=== PATIENT | male | born 1970 ===

== ENCOUNTER 2025-03-28 19:22 | Emergency (ER) | payer MEDICAID, OTHER ==
[2025-03-28 20:17] LABS: BASOPHILS PERCENT AUTO 0.1 % (0.0-1.0); EOSINOPHILS PERCENT AUTO 0.3 % (1.0-3.0); LYMPHOCYTES PERCENT AUTO 20.4 % (20.5-50.1); MONOCYTES PERCENT AUTO 6.3 % (2-8); NEUTROPHILS PERCENT AUTO 72.9 % (42.2-75.2); PLATELET COUNT,PLT 208 10^3/uL (150-450); RED BLOOD CELL COUNT 5.11 10^6/uL (4.6-6.2); WHITE BLOOD CELL COUNT,WBC 7.4 10^3/uL (5.0-10.0)
[2025-03-28 20:35] LABS: A/G RATIO 1.0; ALANINE AMINOTRANSFERASE,ALT 28.0 U/L (16-63); ASPARTATE AMNIOTRANSFERASE,AST 22.0 U/L (15-37); BILIRUBIN TOTAL 0.9 mg/dL (0.2-1.0); BLOOD UREA NITROGEN,BUN 12.0 mg/dL (7-18); CARBON DIOXIDE,CO2 31.0 mmol/L (21-32); CHLORIDE,CL 104.0 mmol/L (98-107); CREATININE 0.83 mg/dL (0.70-1.30); EST CRCL DRUG DOSING (CG) 118.78 mL/min; GLUCOSE RANDOM 127.0 mg/dL (70-99); POTASSIUM,K 4.0 mmol/L (3.5-5.1); PROTEIN TOTAL,TP 7.4 g/dL (6.4-8.2); SODIUM,NA 141.0 mmol/L (136-145)
[2025-03-28 20:38] LABS: ESTIMATED GFR 103.0 mL/min (>=60)
[2025-03-28] MEDS: Iopamidol 612 MG/ML 100 ML Bottle IVPUSH ONE (20:53)
[2025-03-28] MEDS: Ketorolac 30 MG/ML SDV IVPUSH ONE (21:03)
[2025-03-28] MEDS ORDERED: Take Home: Acetaminophen/HYDROcodone 325-5 MG, 5 Tab Pack PO ONE (21:30)
== END 2025-03-28 21:48 ==
LOC: DL.ED 19:22
DX: S46.911A Strain of unspecified muscle, fascia and tendon at shoulder and upper arm level, right arm, initial encounter (principal); S00.83XA Contusion of other part of head, initial encounter; S00.512A Abrasion of oral cavity, initial encounter; Y04.8XXA Assault by other bodily force, initial encounter
CPT/HCPCS: 36415; 70450; 70486; 70491; 71046; 72125; 73030; 80053; 85025; 96374; 99283; 99284; A9270; J1885; Q9967